=== PATIENT | female | born 1985 | race Caucasian/White ===

== ENCOUNTER 2020-11-03 15:14 | Emergency (ER) | payer MEDICAID ==
[~2020-11-03] VITALS: Ht 162.6 cm; Wt 86.2 kg
[2020-11-03 15:23] VITALS: Ht 162.6 cm; Wt 86.2 kg
[2020-11-03 17:31] LABS: BASOPHIL % 0.5 % (0.2-1.3); PLATELET COUNT 271 x10^3mcL (179-408); RED CELL DISTRIBUTION WIDTH 20.3 % (12.3-17.7)
[2020-11-03 17:45] LABS: CALCIUM 7.9 mg/dL (8.5-10.1); CHLORIDE SERUM 105 mmol/L (98-107); CREATININE SERUM 0.7 mg/dL (0.6-1.0); GFR1 > 60 mL/min; GLUCOSE SERUM 93 mg/dL (74-106); POTASSIUM SERUM 3.6 mmol/L (3.5-5.1); SODIUM SERUM 142 mmol/L (136-145)
[2020-11-03 17:49] LABS: ALBUMIN 3.8 g/dL (3.4-5.0); ALKALINE PHOSPHATASE 55 U/L (46-116); ALT/SGPT 55 U/L (14-59); AST/SGOT 23 U/L (15-37); BILIRUBIN TOTAL 0.2 mg/dL (0.20-1.00); LIPASE 75 IU/L (73-393); TOTAL PROTEIN, SERUM 7.1 g/dL (6.4-8.2)
[2020-11-03 18:23] VITALS: BP 109/63
== END 2020-11-03 18:23 | disposition home or self-care (01) ==
LOC: ED 15:14
PROVIDERS: Emergency Medicine
DX: K52.9 Noninfective gastroenteritis and colitis, unspecified (principal); Z90.49 Acquired absence of other specified parts of digestive tract; Z98.890 Other specified postprocedural states